=== PATIENT | male | born 1945 | race Two or more races ===

== ENCOUNTER 2017-01-08 22:24 | Emergency (ER) | payer OTHER ==
[2017-01-08 22:36] VITALS: TEMP 98.2
--- NOTE | 2017-01-08 23:22 | EDPHY ---
H & P Stated Complaint: L leg pain HPI/ROS: HPI CHIEF COMPLAINT: Left leg pain HISTORY OF PRESENT ILLNESS: This patient is a 71-year-old male, significant past medical history for coronary disease, diabetes and hypertension, presents emergency room with 3 days of left-sided posterior gluteus pain that radiates at times down to his left knee. But does not go below his knee. Patient states that he went hiking 3 days ago and ever since he has had ongoing sharp stabbing left leg pain. The pain starts in his left gluteus and at times radiates to his left knee. It is worse when he goes to stand up. Denies any saddle anesthesia, numbness or tingling, focal weakness. Denies any bowel or bladder incontinence or retention. No fever. Denies direct trauma. Denies midline lumbar back pain. He has taken Advil prior to arrival. However is not help much with his pain. It is intermittent especially when he does stand up and move. Past Medical History: Coronary artery disease with stents, diabetes, hypertension Past Surgical History: PTCA Social History: Denies daily use of drugs alcohol tobacco products Family History: Noncontributory ROS REVIEW OF SYSTEMS: A comprehensive 10 point review of systems is otherwise negative aside from elements mentioned in the history of present illness. Exam Constitutional triage nursing summary reviewed, vital signs reviewed, awake/ alert. Eyes normal conjunctivae and sclera, EOMI, PERRLA. HENT normal inspection, atraumatic, moist mucus membranes, no epistaxis, neck supple/ no meningismus, no raccoon eyes. Respiratory clear to auscultation bilaterally, normal breath sounds, no respiratory distress, no wheezing. Cardiovascular rate normal, regular rhythm, no murmur, no edema, distal pulses normal. Gastrointestinal soft, non-tender, no rebound, no guarding, normal bowel sounds, no distension, no pulsatile mass. Genitourinary no CVA tenderness. Musculoskeletal no midline vertebral tenderness, full range of motion, no calf swelling, no tenderness of extremities, no meningismus, good pulses, neurovascularly intact. Of note this patient's worsening sciatica type symptoms with cross straight leg raise. His left leg is neurovascular intact. Good distal pulse, warm extremity good cap refill. Skin pink, warm, & dry, no rash, skin atraumatic. Neurologic awake, alert and oriented x 3, AAOx3, moves all 4 extremities equally, motor intact, sensory intact, CN II-XII intact, normal cerebellar, normal vision, normal speech. Psychiatric normal mood/affect. Heme/Lymph/Immune no lymphadenopathy. Differential Diagnosis: Includes but is not limited to sciatica, nerve root compression, annular tear, doubt peripheral arterial disease. Given exam. Medical Decision Making: Plan for this patient lumbar spine x-ray. [place]. Re-evaluation: If x-ray is unrevealing. Will try a trial of anti-inflammatories and narcotic pain medicine and rest and heating pad. Also encouraged follow up with his primary care doctor. Will not do steroids as he is diabetic. The x-ray has been reviewed does show degenerative joint disease. Or prescribed this patient [place]. Close follow-up with his primary care doctor and orthopedics. He understands return emergency room if develops worsening symptoms includes severe back pain, numbness or tingling saddle anesthesia. He has none of this at this time. His pain is well controlled. His clinical exam is consistent with sciatica. Source: Patient - Personal History Current Tetanus/Diphtheria Vaccine: Unsure Current Tetanus Diphtheria and Acellular Pertussis (TDAP): Unsure - Medical/Surgical History Hx Asthma: No Hx Chronic Respiratory Disease: No Hx Diabetes: Yes Hx Cardiac Disease: Yes Hx Renal Disease: No Hx Cirrhosis: No Hx Alcoholism: No Hx HIV/AIDS: No Hx Splenectomy or Spleen Trauma: No Other PMH: Stent, HTN, - Social History Smoking Status: Never smoked Constitutional: Initial Vital Signs Temperature (C) 36.8 C 01/08/17 22:32 Heart Rate 63 01/08/17 22:32 Respiratory Rate 16 01/08/17 22:32 O2 Sat (%) 97 01/08/17 22:32 O2 Delivery Mode Room Air Allergies/Adverse Reactions: No Known Allergies Allergy (Verified 01/08/17 22:31) Home Medications: Medication Instructions Recorded Hydrochlorothiazide [HCTZ (*)] 25 mg PO DAILY 03/21/12 Lisinopril [Zestril 20 mg (RX)] 20 mg PO BID 03/21/12 metFORMIN HCL [Glucophage] 500 mg PO TIDMEAL 03/21/12 Aspirin [Aspirin 81mg (*)] 81 - 162 mg PO DAILY 03/30/14 Latanoprost 0.005% [Xalatan 0.005% 1 drops EACHEYE HS 03/30/14 (*)] Nebivolol HCl [Bystolic 5 mg (*)] 5 mg PO DAILY #30 tab 03/31/14 Hydrocodone/APAP 5/325 [[place] 1 - 2 tab PO Q4H PRN #20 tab 01/09/17 5/325] Medical Decision Making - Diagnostics Imaging Results: Imaging Impressions Lumbar Spine X-Ray 01/08/17 23:29 Impression: Degenerative spondylosis with minimal progression since 2013 most notable at L5-S1. - Data Points Medications Given: Discontinued Medications Hydrocodone Bitart/Acetaminophen ([place] 5/325mg Prepack#6) 1 btl TAKEHOME EDNOW ONE Stop: 01/08/17 23:30 Last Admin: 01/09/17 01:11 Dose: 1 btl Hydrocodone Bitart/Acetaminophen ([place] 5/325) 1 tab PO EDNOW ONE Stop: 01/08/17 23:30 Last Admin: 01/08/17 23:50 Dose: 1 tab Departure - Departure Disposition: Home, Routine, Self-Care Clinical Impression: Sciatica Qualifiers: Laterality: left Qualified Code(s): M54.32 - Sciatica, left side Condition: Good Instructions: Hydrocodone/Acetaminophen (By mouth), Sciatica (ED), Lumbar Radiculopathy (ED) Additional Instructions: 1. Recommend he follow up with her primary care doctor. 2. Recommend heating pad her back for the next 48 hours. 3. Rest. 4. Anti-inflammatory pain medicine for pain control. 5. [place] for severe pain. Referrals: CHIOMA ORTEGA [Primary Care Provider] - As per Instructions Prescriptions: Hydrocodone/APAP 5/325 [[place] 5/325] 1 - 2 tab PO Q4H PRN #20 tab PRN Reason: Pain, Moderate
[2017-01-08] MEDS ORDERED: HYDROCOD/APAP 5/325 PREPACK#6 BTL TAKEHOME ONE (23:29)
[2017-01-08] MEDS ORDERED: HYDROCODONE/APAP 5/325 TAB PO ONE (23:29)
[2017-01-09 01:48] VITALS: BP 206/104; PULSE 68; RESP 18; O2SAT 96
== END 2017-01-09 01:48 | disposition home or self-care (01) ==
DX: M54.32 Sciatica, left side (principal); I10 Essential (primary) hypertension; I25.10 Atherosclerotic heart disease of native coronary artery without angina pectoris; E11.9 Type 2 diabetes mellitus without complications; Z79.82 Long term (current) use of aspirin; Z79.84 Long term (current) use of oral hypoglycemic drugs; Z95.5 Presence of coronary angioplasty implant and graft

== ENCOUNTER 2017-02-06 12:18 | Observation (INO) | payer OTHER ==
[2017-02-06] MEDS ORDERED: ASPIRIN 81 MG CHEWABLE TAB PO ONE (12:28)
--- NOTE | 2017-02-06 12:36 | CPEKG ---
Heart Rate: 64 RR Interval: 938 P-R Interval: 180 QRSD Interval: 134 QT Interval: 420 QTC Interval: 434 P [place]: 75 QRS [place]: 90 T Wave [place]: 13 EKG Severity - ABNORMAL ECG - EKG Impression: SINUS RHYTHM EKG Impression: RBBB AND LPFB Electronically Signed By: Regine Jean 06-Feb-2017 15:15:18
[2017-02-06 12:55] LABS: % IMMATURE GRANULYOCYTES 0.9 % (0.0-1.1); ADD DIFF? NO; ADD MORPH? NO; ADD SCAN? NO; ATYPICAL LYMPHOCYTE FLAG 0 (0-99); FRAGMENT RBC FLAG 0 (0-99); HEMATOCRIT 48.8 % (40.0-51.0); HEMOGLOBIN 16.2 g/dL (13.7-17.5); LEFT SHIFT FLG 10 (0-99); LIPEMIA HEMOLYSIS FLAG 80 (0-99); MEAN CELL HEMOGLOBIN 28.7 pg (27.9-34.1); MEAN CELL HEMOGLOBIN CONCENTR. 33.2 g/dL (32.4-36.7); MEAN CELL VOLUME 86.5 fL (81.5-99.8); MEAN PLATELET VOLUME 9.4 fL (8.7-11.7); PLATELET CLUMPS FLAG 0 (0-99); PLATELET COUNT 243 10^3/uL (150-400); RED BLOOD CELL COUNT 5.64 10^6/uL (4.40-6.38); RED CELL DISTRIBUTION WIDTH 13.7 % (11.5-15.2)
[2017-02-06 13:06] LABS: INR 0.9 (0.83-1.16)
[2017-02-06 13:07] LABS: APTT 23.7 SEC (23.0-38.0)
[2017-02-06 13:11] LABS: ALANINE AMINOTRANSFERASE 41 IU/L (21-72); ALBUMIN 4.6 g/dL (3.5-5.0); ALKALINE PHOSPHATASE 70 IU/L (38-126); ANION GAP 16 mEq/L (8-16); ASPARTATE AMINOTRANSFERASE 23 IU/L (17-59); BILIRUBIN,TOTAL 0.7 mg/dL (0.1-1.4); BILIRUBIN-CONJUGATED 0.2 mg/dL (0.0-0.5); BILIRUBIN-UNCONJUGATED 0.5 mg/dL (0.0-1.1); CALCIUM 9.7 mg/dL (8.5-10.4); CARBON DIOXIDE 25 mEq/l (22-31); CHLORIDE 100 mEq/L (97-110); CREATININE 0.9 mg/dL (0.7-1.3); GLOMERULAR FILTRATION RATE > 60; GLUCOSE 111 mg/dL (70-100); POTASSIUM 3.7 mEq/L (3.5-5.2); SODIUM 141 mEq/L (134-144); TOTAL PROTEIN 7.8 g/dL (6.3-8.2)
[2017-02-06 13:19] LABS: CREATINE KINASE-MB FRACTION 1.69 ng/mL (0-3.19)
--- NOTE | 2017-02-06 13:39 | EDPHY ---
H & P Time Seen by Provider: 02/06/17 12:28 HPI/ROS: HPI Chest pain, high blood pressure. 71-year-old male by private vehicle. He presents to the emergency department from the office of his primary care physician, Dr. martha Prince. He complains of mid substernal left-sided chest pain, on and off since yesterday. Describes this as a deep dull ache in his chest. He reports having at least several episodes which lasted less than 5 minutes since yesterday. He has a history of coronary artery disease with a stented circumflex artery by Dr. Daniel Myers in 2012. His current copper plater is Dr. Henrry Higuera. He does not have any chest pain now. ROS: Constitutional: No fever, no chills. No weakness. Eyes: No discharge. No changes in vision. ENT: No sore throat. No nasal congestion or rhinorrhea. Respiratory: No cough. No shortness of breath. Cardiac: As above, no palpitations. Gastrointestinal: No abdominal pain, no vomiting, no diarrhea. Genitourinary: No hematuria. No dysuria or increased frequency with urination. Musculoskeletal: No back pain. No neck pain. No myalgias or arthralgias. Skin: No rashes. Neurological: No headache. No focal weakness or altered sensation. Past medical history: Hypertension coronary artery disease, as above. Social history: Nonsmoker. No alcohol. Here by himself. Physical Exam: General Appearance: Alert, no distress. This patient is responding to questions appropriately and in full sentences. This patient appears well- hydrated and well-nourished. Eyes: Pupils equal and round no pallor or injection. No lid edema, erythema or injection. Respiratory: There are no retractions, lungs are clear to auscultation with good air movement bilaterally. Cardiovascular: Regular rate and rhythm. No murmur. Gastrointestinal: Abdomen is soft and nontender, no masses, bowel sounds normal. No focal tenderness at McBurney's point. No Roblero sign. Neurological: Motor sensory function is grossly intact. Cranial nerves are normal. Gait is normal. Skin: Warm and dry, no rashes. Musculoskeletal: Neck is supple and nontender. Extremities are symmetrical. All joints range without pain or impingement. Psychiatric: No agitation. No depression. Database: EKG: EKG time is 12:31 p.m.; EKG shows a narrow complex normal sinus rhythm with a ventricular rate of 64. Right bundle branch block with left posterior fascicular block noted. The [place], QRS, QT intervals are within normal limits. There are no ST-T wave changes indicative of ischemic or injury pattern. No evidence of right heart strain. EKG was compared to prior EKG from March of 2014. Other than right bundle branch block no other significant changes. Interpreted by me. Imaging: Chest x-ray AP portable; the cardiac mediastinal silhouette is unremarkable. No evidence of infiltrate or pneumothorax. Mild peribronchial thickening. No acute cardiopulmonary disease process noted. Interpreted by me. Procedures: Emergency department course: IV placed. He was placed on a taper/finisher. EKG performed and reviewed by myself. Vital signs reviewed. He is markedly hypertensive. Otherwise, vital signs are normal. 1:45 p.m., patient re-evaluated. He remains chest pain-free. Blood pressure remained significantly elevated. This is likely chronic. Results of his emergency department workup were discussed with him. I discussed plan to admit him to the hospital for further evaluation of his intermittent chest pains as well as management of his blood pressure. 1:50 p.m., spoke with hospitalist. Patient admitted to the hospitalist under the care of Dr. Tran. Discussed concern regarding uncontrolled hypertension with hospitalist. Patient given 10 mg IV hydralazine in the emergency department. This was done. Patient was admitted to the hospitalist service in stable condition. Differential Diagnosis: The differential diagnosis on this patient includes but is not limited to hypertensive urgency, chest pain, history of coronary artery disease. Acute coronary syndrome, myocardial infarction, pulmonary embolism, aortic dissection , myocarditis, pericarditis unlikely. This represents a partial list of diagnoses considered. These considerations are based on history, physical exam , past history, reassessment and diagnostic testing. Smoking Status: Never smoked Constitutional: Initial Vital Signs Temperature (C) 36.7 C 02/06/17 12:23 Heart Rate 64 02/06/17 12:23 Respiratory Rate 16 02/06/17 12:23 Blood Pressure 226/112 H 02/06/17 12:23 O2 Sat (%) 97 02/06/17 12:23 O2 Delivery Mode Room Air Allergies/Adverse Reactions: No Known Allergies Allergy (Verified 01/08/17 22:31) Home Medications: Medication Instructions Recorded Hydrochlorothiazide [HCTZ (*)] 25 mg PO DAILY 03/21/12 Aspirin [Aspirin 81mg (*)] 81 - 162 mg PO DAILY 03/30/14 Latanoprost 0.005% [Xalatan 0.005% 1 drops EACHEYE HS 03/30/14 (*)] Gabapentin [Neurontin 300 MG (*)] 300 mg PO HS 02/06/17 Herbals/Supplements -Info Only 1 ea PO DAILY 02/06/17 Lisinopril [Zestril 30 mg] 30 mg PO BID 02/06/17 Nebivolol HCl [Bystolic] 10 mg PO DAILY 02/06/17 [place]-3 Fatty Acids [Fish Oil 1000 2,000 mg PO DAILY 02/06/17 mg (*)] metFORMIN HCL [Glucophage 500 mg 500 mg PO BIDMEAL 02/06/17 (*)] Amlodipine Besylate [Norvasc] 5 mg PO DAILY #30 tablet 02/07/17 Medical Decision Making - Data Points Laboratory Results: Laboratory Results 02/06/17 12:32 02/06/17 12:32 Medications Given: Discontinued Medications Aspirin (Aspirin) 324 mg PO EDNOW ONE Stop: 02/06/17 12:29 Last Admin: 02/06/17 13:03 Dose: 324 mg Aspirin (Aspirin) 81 mg PO DAILY [facility] Stop: 08/06/17 08:59 Last Admin: 02/07/17 10:53 Dose: 81 mg Gabapentin (Neurontin) 300 mg PO [facility] Stop: 08/05/17 20:59 Last Admin: 02/06/17 21:07 Dose: 300 mg Hydralazine HCl (Apresoline) 10 mg IVP EDNOW ONE Stop: 02/06/17 14:06 Last Admin: 02/06/17 14:25 Dose: 10 mg Hydrochlorothiazide (Hydrochlorothiazide) 25 mg PO DAILY [facility] Stop: 08/06/17 08:59 Last Admin: 02/07/17 10:54 Dose: 25 mg Ibuprofen (Motrin) 200 mg PO Q8H PRN PRN Reason: Pain, Inflammatory Stop: 08/05/17 20:55 Last Admin: 02/07/17 12:17 Dose: 200 mg Latanoprost (Xalatan 0.005%) 1 drops EACHEYE [facility] Stop: 08/05/17 20:59 Last Admin: 02/06/17 21:09 Dose: Not Given Lisinopril (Zestril) 30 mg PO BID [facility] Stop: 08/05/17 20:59 Last Admin: 02/07/17 10:53 Dose: 30 mg Metformin HCl (Glucophage) 500 mg PO BIDMEAL [facility] Stop: 08/05/17 17:59 Last Admin: 02/07/17 10:56 Dose: Not Given Nebivolol (Bystolic) 10 mg PO DAILY [facility] Stop: 08/06/17 08:59 Last Admin: 02/07/17 10:53 Dose: 10 mg [id number] Ethyl Esters (Fish Oil) 2,000 mg PO DAILY [facility] Stop: 08/06/17 08:59 Last Admin: 02/07/17 10:53 Dose: 2,000 mg Departure - Departure Disposition: [facility] Acute Clinical Impression: Chest pain, Hypertension, uncontrolled
[2017-02-06 13:44] LABS: TROPONIN I < 0.012 ng/mL (0-0.034)
[2017-02-06] MEDS ORDERED: hydrALAZINE 20 MG/ML VIAL IVP ONE (14:05)
[2017-02-06] MEDS ORDERED: ZOLPIDEM TARTRATE 5 MG TAB PO PRN (15:07)
[2017-02-06] MEDS ORDERED: ACETAMINOPHEN 325 MG TAB PO PRN (15:07)
[2017-02-06] MEDS ORDERED: ONDANSETRON DISINTEGRATING 4 MG TAB PO PRN (15:07)
[2017-02-06] MEDS: metFORMIN HCL 500 MG TAB PO SCH (18:35)
[2017-02-06] MEDS ORDERED: hydrALAZINE 25 MG TAB PO PRN (18:39)
--- NOTE | 2017-02-06 18:39 | PDGENHP ---
History and Physical History and Physical: HISTORY AND PHYSICAL CC:Chest pain HISTORY: this patient comes to the emergency room today complaining of chest pain. He states that yesterday he started having very brief episodes of pain in the left sternal area. These episodes last for a length of time hard to discern but certainly less than a minute. There were infrequent yesterday but have become more frequent today. I get the sense that may last only seconds. He is unable to describe to me in any way the quality or nature of the discomfort. It is not pleuritic, is not associated with cough, shortness of breath, fever, nausea, sweats. It is not associated with activity. It is not associated with swallowing. It is in a different location than his prior angina pain which was several cm more inferior and several cm more lateral. He did have a stent placed in 2012. He last had a nuclear stress test in 2013 which was unremarkable with no signs of ischemia. His blood pressures are quite high in the emergency room. He is on chronic medications for blood pressure including lisinopril, bisoprolol, and hydrochlorothiazide. He and his son both require port good daily compliance with these medicines. The patient however tells me that last week he had his blood pressure checked before a spinal injection is blood pressure was quite high. His last blood pressure measured before that was in the ER here about a month ago and was quite high at that time as well. I did review the chart and his blood pressure systolic was 206 diastolic 113 at that time. ROS: A comprehensive 10 system review revealed no other significant findings. Of note the patient has no changes in vision, no headache, no focal neurologic symptoms. There is no shortness of breath no leg swelling PAST MEDICAL HISTORY: Coronary artery disease with stent Hypertension on medication Glaucoma Diabetes mellitus type 2 FAMILY MEDICAL HISTORY: He has a sister with hypertension and his father had a stroke SOCIAL HISTORY: single, retired having worked at [employer] No tobacco or alcohol MEDICATIONS: The patients list has been reconciled by our clinical pharmacist in the EMR. I have reviewed the list and ordered appropriate medicines. notably his medications did not include any decongestants or stimulants PHYSICAL EXAMINATION: Vital Signs:Initial blood pressure 226/112 in the 1st 3 blood pressures were all quite high in the ER. He was given some hydralazine in the ER which brought his blood pressure down to 165 over new 98 at the time I was examining him. Pulses regular and normal range, respirations normal no fever Line Decorator: sinus rhythm in the ER Examination: General: alert, oriented, good mentation, relaxed Skin: warm, dry, good color, no rash HEENT: normal Neck: no mass or jvd Resps: relaxed Lungs: clear breath sounds Heart: regular, no murmur Abdomen: soft, nondistended, nontender, +BS, no mass Upper Extremities: normal Lower Extremities: no edema, warm No Bleeding or bruising Neurologic: normal speech/language, normal hemstitcher, no focal weakness IV site: looks normal LABORATORY DATA: initial troponin normal Chemistries otherwise unremarkable with good renal function CBC also unremarkable RADIOLOGY STUDIES: Chest x-ray done in the ER, single view, my interpretation of the images: Normal chest x-ray 12 LEAD EK lead EKG done in the ER, my interpretation of the tracing: Sinus rhythm with right bundle branch block nothing ischemic appearing ASSESSMENT: 1- accelerated, severe hypertension despite 3 antihypertensive medications - he has responded so far to hydralazine in the ER nicely and I wonder if this would be a good medicine to add to his list it might even replace some of his current medicines. The goal of treatment of blood pressure here in the hospital will be significant lowering but not in the normal range so as to avoid problems with auto regulation issues. 2- Chest pain as described by patient is very atypical for coronary disease in a different location than his previous angina pain. The cause of this is uncertain to me, I wonder if it might be due to some type of cardiac ectopy or muscle spasms; that being said he does have a history of heart disease with coronary stents placed 4 years ago and has severe hypertension at this time and should be ruled out for DE and if rules out have risk stratification PLANS: -Treat hypertension as indicated with hydralazine with goal blood pressure below 175 systolic and below 100 diastolic.Will start with hydralazine as that is a reasonable medicine for him and so far seems to be working - rule out DE -If rules out and remains stable with do Lexiscan stress test in the morning - he will need careful outpatient follow-up for his blood pressures I have reviewed the patient's case in detail with Dr. Jean I have reviewed the patient's past medical records as part of this assessment, including previous hospital records including blood pressures diagnoses and diagnostic studies
[2017-02-06] MEDS ORDERED: IBUPROFEN 600 MG TAB PO PRN (20:56)
[2017-02-06] MEDS ORDERED: GABAPENTIN 300 MG CAP PO SCH (21:00)
[2017-02-06] MEDS ORDERED: LATANOPROST 0.005% 2.5 ML OPHT DROPS EACHEYE SCH (21:00)
[2017-02-06] MEDS ORDERED: NON-FORMULARY NEW DRUG (Lisinopril [Zestril 30 Mg] 30 MG) PO SCH (21:00)
[2017-02-06] MEDS: LISINOPRIL 20 MG TAB PO SCH (21:07)
[2017-02-07] MEDS: IBUPROFEN 200 MG TAB PO PRN ×3 (07:30→12:17)
[2017-02-07] MEDS ORDERED: NEBIVOLOL HCL 5 MG TAB PO SCH (09:00)
[2017-02-07] MEDS ORDERED: NON-FORMULARY NEW DRUG (Nebivolol Hcl [Bystolic] 10 MG) PO SCH (09:00)
[2017-02-07] MEDS ORDERED: HYDROCHLOROTHIAZIDE 25 MG TAB PO SCH (09:00)
[2017-02-07] MEDS ORDERED: OMEGA-3 FATTY ACIDS 1,000 MG CAP PO SCH (09:00)
[2017-02-07] MEDS ORDERED: ASPIRIN 81 MG CHEWABLE TAB PO SCH (09:00)
[2017-02-07] MEDS ORDERED: REGADENOSON 0.4 MG/5 ML SYR IVP ONE (09:29)
[2017-02-07] MEDS: LISINOPRIL 20 MG TAB PO SCH (10:53)
[2017-02-07] MEDS: metFORMIN HCL 500 MG TAB PO SCH (10:56)
[2017-02-07 12:01] VITALS: BP 176/96; PULSE 64; RESP 12; TEMP 98.1; O2SAT 98
--- NOTE | 2017-02-07 13:40 | GDS ---
[f rep st] DISCHARGE SUMMARY ALL DIAGNOSES: 1. Chest pain. 2. Uncontrolled hypertension. 3. Coronary artery disease, status post stent. 4. Glaucoma. 5. Diabetes mellitus type 2. HOSPITAL COURSE: This is a 71-year-old man, who presented to the emergency room due to chest pain. This was atypical for cardiac. He had 3 negatives troponins. He had an EKG, which showed multiple right bundle branch block. His blocks are new from previous EKG. He underwent a nuclear stress te st, which was negative for ischemia. In terms of his hypertension, blood pressure was 226/112. He was given 1 dose of IV hydralazine in the emergency department of 10 mg. He was restarted on his home antihypertensives, including hydroc hlorothiazide, lisinopril, Bystolic. Blood pressures improved to 176/96, on discharge. I have mulugeta mmended that he start amlodipine, check his blood pressures closely, and follow up with his PCP. I have given him a prescription for 5 mg in addition to his other antihypertensives. He understands t his. I think likely the reason for his chest pain was his uncontrolled hypertension. He is discharged in stable condition. He is instructed to follow up with his PCP, Dr. Garcia in [facility] 1 week. He was given instructions to monitor his blood pressures at home, record these, and brin g these to his PCP. /[id number]/MODL
--- NOTE | 2017-02-07 14:12 | CPR ---
[f rep st] NONINVASIVE CARDIAC PROCEDURE REPORT PROCEDURE PERFORMED: Lexiscan injection of Lexiscan MPI study. SUPERVISING SUPERVISOR PAYROLL: Kalia Veronica MD INDICATION FOR PROCEDURE: Episodes of chest pressure, abnormal electrocardiogram, known history of coronary artery disease. PRE: After obtaining informed consent, ensuring patient's n.p.o. status of caffeine for greater jaime n 12 hours, the patient was placed on electrocardiogram. Initial EKG shows sinus rhythm, right bund le branch block, left posterior fascicular block. Patient denies any chest pain, shortness of breat h, or symptoms suggesting of ischemia. Initial blood pressure was 162/96, saturation 96%. INJECTION: Patient was given Lexiscan slow IV push followed by nuclear isotope. Patient did report some mild flushing sensation, but had no chest pain or pressure, noted within a minute after inject ion of heart rate being elevated up to 97 beats per minute. Besides heart rate, no significant EKG changes. The patient's vital signs remained stable, and within 5 minutes, the patient reported all symptoms subsided, again, the electrocardiogram remained stable. Final blood pressure 164/90, satur ating 99% on room air. IMPRESSION: A 71-year-old male with known history of coronary artery disease with previous PCI, adm itted to the hospital with chest pressure and pain, undergoing myocardial perfusion imaging scan to evaluate for possible cardiac ischemia, reporting mild flushing sensation with Lexiscan injection wi th mild elevated heart rate, within 5 minutes all symptoms subsided. Vital signs remained stable. Patient asymptomatic of any symptoms throughout the procedure suggesting of cardiac ischemia. He wi ll finish post stress MPI imaging in Nuclear Medicine at this time. /[id number]/MODL
== END 2017-02-07 13:38 | disposition home or self-care (01) ==
LOC: F2W 15:33
PROVIDERS: ADMIT Internal Medicine; ATTEND Internal Medicine
DX: R07.89 Other chest pain (principal); I10 Essential (primary) hypertension; I25.10 Atherosclerotic heart disease of native coronary artery without angina pectoris; Z95.5 Presence of coronary angioplasty implant and graft; E11.9 Type 2 diabetes mellitus without complications; H40.9 Unspecified glaucoma; I45.10 Unspecified right bundle-branch block
CPT/HCPCS: 71010; 78452; 93005; 93017; 96374; 99285; A9500; G0378; J0360; J2785

== ENCOUNTER 2017-04-09 15:18 | Emergency (ER) | payer OTHER ==
--- NOTE | 2017-04-09 16:29 | EDPHY ---
H & P Time Seen by Provider: 04/09/17 16:13 HPI/ROS: CHIEF COMPLAINT: High blood pressure HISTORY OF PRESENT ILLNESS: History of hypertension, currently on hydrochlorothiazide 25 mg once daily, lisinopril 20 mg twice daily, Bystolic 20 mg q.day. Today he woke up and took his blood pressure and it was 180-210 systolic and he took an additional 5 mg oral Norvasc which he had been on before but did not help so he came to the ER for evaluation. Patient has actually no other medical complaints. Specifically denies headache chest pain or urinary symptoms. Not short of breath REVIEW OF SYSTEMS: Eye: no change in vision ENT: no sore throat Cardiac: no chest pain or syncope Pulmonary: no cough or SOB Abdomen: no vomiting, diarrhea, abdominal pain Musculoskeletal: no back pain Skin: no rash Neuro: no headache Constitutional: no fever : no urinary symptoms A comprehensive 10 point review of systems is otherwise negative aside from elements mentioned in the history of present illness. PAST MEDICAL HISTORY: Includes hypertension, cardiac disease with stenting in 2012, "pre diabetes " Social history: Nonsmoker General Appearance: Alert and conversant, cooperative. Eyes: No scleral icterus. ENT, Mouth: Normal mucous membranes. Respiratory: Normal respiratory effort, breath sounds equal, lungs are clear to auscultation. Cardiovascular: Regular rate and rhythm. Gastrointestinal: Abdomen is soft and non tender. Neurological: Alert and oriented x3. Normally conversant. Face symmetric, normal movement and sensation in all extremities. Skin: Warm and dry, no rashes. Musculoskeletal: No peripheral edema and no joint swelling. Psychiatric: Not agitated. Emergency Department course/MDM: Blood pressure 181/97, 203/93. Patient went for a hike at [facility] today, no symptoms. Discussed with Jeremías at 1636, recommends that I give 5 norvasc and DC if systolic less than 180; add hydralazine orally x 1 dose if needed additional. Hypertension but without evidence of end-organ damage or hypertensive emergency. EKG is similar to previous and no ischemic symptoms. 174/96 last emergency department blood pressure. Smoking Status: Never smoked Constitutional: Initial Vital Signs Temperature (C) 36.7 C 04/09/17 15:43 Heart Rate 72 04/09/17 15:43 Respiratory Rate 16 04/09/17 15:43 Blood Pressure 181/97 H 04/09/17 15:43 O2 Sat (%) 97 04/09/17 15:43 O2 Delivery Mode Room Air Allergies/Adverse Reactions: No Known Allergies Allergy (Verified 04/09/17 15:42) Home Medications: Medication Instructions Recorded Hydrochlorothiazide [HCTZ (*)] 25 mg PO DAILY 03/21/12 Aspirin [Aspirin 81mg (*)] 81 - 162 mg PO DAILY 03/30/14 Latanoprost 0.005% [Xalatan 0.005% 1 drops EACHEYE HS 03/30/14 (*)] Gabapentin [Neurontin 300 MG (*)] 300 mg PO HS 02/06/17 Herbals/Supplements -Info Only 1 ea PO DAILY 02/06/17 Lisinopril [Zestril 30 mg] 30 mg PO BID 02/06/17 Nebivolol HCl [Bystolic] 10 mg PO DAILY 02/06/17 Boyce-3 Fatty Acids [Fish Oil 1000 2,000 mg PO DAILY 02/06/17 mg (*)] metFORMIN HCL [Glucophage 500 mg 500 mg PO BIDMEAL 02/06/17 (*)] Amlodipine Besylate [Norvasc] 5 mg PO DAILY #30 tablet 02/07/17 Medical Decision Making - Diagnostics EKG Interpretation: 12-lead EKG interpreted by me; official reading is in trace master. My interpretation is sinus rhythm with right bundle branch block and left posterior fascicular block, similar to February 06 of this year in morphology. - Data Points Medications Given: Discontinued Medications Amlodipine Besylate (Norvasc) 5 mg PO EDNOW ONE Stop: 04/09/17 16:37 Last Admin: 04/09/17 16:48 Dose: 5 mg Hydralazine HCl (Apresoline) 10 mg PO EDNOW ONE Stop: 04/09/17 17:09 Last Admin: 04/09/17 17:59 Dose: 10 mg Departure - Departure Disposition: Home, Routine, Self-Care Clinical Impression: Hypertension Qualifiers: Hypertension type: unspecified Qualified Code(s): I10 - Essential (primary) hypertension Condition: Good Instructions: Hypertension (ED) Referrals: UNKNOWN,[facility]IOMA [Other] - As per Instructions Keith Georges MD [Medical Doctor] - 1 day without fail (as scheduled tomorrow)
[2017-04-09] MEDS ORDERED: amLODIPine BESYLATE 5 MG TAB PO ONE (16:36)
--- NOTE | 2017-04-09 16:58 | CPEKG ---
Heart Rate: 69 RR Interval: 870 P-R Interval: 196 QRSD Interval: 138 QT Interval: 448 QTC Interval: 480 P [place]: 69 QRS [place]: 87 T Wave [place]: -24 EKG Severity - ABNORMAL ECG - EKG Impression: SINUS RHYTHM EKG Impression: RBBB AND LPFB EKG Impression: BORDERLINE ST DEPRESSION, LATERAL LEADS Electronically Signed By: Mal Morin 09-Apr-2017 17:00:41
[2017-04-09 17:34] VITALS: BP 174/96; PULSE 76; RESP 18; TEMP 97.9; O2SAT 95
[2017-04-09] MEDS: hydrALAZINE 10 MG TAB PO ONE ×2 (17:34→17:59)
== END 2017-04-09 18:32 | disposition home or self-care (01) ==
DX: I10 Essential (primary) hypertension (principal); Z79.82 Long term (current) use of aspirin